=== PATIENT | female | born 1985 | race American Indian/Alaskan Native ===

== ENCOUNTER 2017-06-27 17:03 | Emergency (ER) | payer MEDICAID, OTHER ==
[2017-06-27 17:03] VITALS: BMI 36.0
[2017-06-27 17:14] VITALS: BP 135/90; PULSE 90; RESP 18; TEMP 98.1; O2SAT 100
--- NOTE | 2017-06-27 17:26 | C.PDOC ---
History Of Present Illness Patient is a 32yo female, presents to the ED for evaluation of an abscess/ infection present in her right axilla. Pt reports she has had several abscesses to the site which have all been drained in the past. Pt states she used Motrin and applied heat to the area with some relief; reports noticing yellow discharge spontaneously draining earlier with some blood. She denies any other medical complaints. PCP: None provided . Time Seen by Provider: 06/27/17 17:14 Chief Complaint (Nursing): Abnormal Skin Integrity History Per: Patient History/Exam Limitations: no limitations Onset/Duration Of Symptoms: Days (2) Current Symptoms Are (Timing): Still Present Quality Of Symptoms: Painful, Swollen, Draining Additional History Per: Patient Past Medical History Reviewed: Historical Data, Nursing Documentation, Vital Signs Vital Signs: Last Vital Signs Temp 98.1 F 06/27/17 17:08 Pulse 90 06/27/17 17:08 Resp 18 06/27/17 17:08 BP 135/90 06/27/17 17:08 Pulse Ox 100 06/27/17 17:48 - Medical History PMH: Anemia, Arthritis Other PMH: axilla abscess (recurrent) Surgical History: No Surg Hx - [facility] Procedures LOW CERVICAL (01/20/15) Family History: States: No Known Family Hx - Social History Hx Tobacco Use: No Hx Alcohol Use: No Hx Substance Use: No - Immunization History Hx Tetanus Toxoid Vaccination: No Hx Influenza Vaccination: No Hx Pneumococcal Vaccination: No Review Of Systems Except As Marked, All Systems Reviewed And Found Negative. Constitutional: Positive for: Fever (tactile) Skin: Positive for: Other (abscess to right axilla) Physical Exam - Physical Exam Appears: Well, Non-toxic Skin: Other (right axilla with 2 tender papular lesions with no active drainage. no fluctuance. skin very hardened with some mild warmth. ) Head: Atraumatic Eye(s): left: Normal Inspection, EOMI Ear(s): Bilateral: Normal Nose: Normal Lips: Normal Appearing Lymphatic: Deferred Cardiovascular: Rhythm Regular Respiratory: Normal Breath Sounds Extremity: Normal ROM Extremity: Bilateral: Atraumatic ED Course And Treatment O2 Sat by Pulse Oximetry: 100 (RA) Pulse Ox Interpretation: Normal Medical Decision Making Medical Decision Making: Time: 171 Impression: Hidradenitis Suppartiva Plan: -- Motrin 800 mg PO -- Pt to be discharged home with antibiotics Instructed to complete entire course and to return to ED if symptoms worsen or new symptoms arise. Disposition - Disposition Referrals: Agustina Joyce MD [Staff Provider] - [facility] [Outside] Disposition: HOME/ ROUTINE Disposition Time: 17:27 Condition: STABLE Additional Instructions: Ms. Johnson, thank you for letting us take care of you today. Return to the ER if your symptoms worsen, or if any problems. Take the medication listed below as prescribed. You are also being given patient [facility] Please follow these instructions. Follow up with Dr. Joyce (a general surgeon) for re-evaluation. If you have any problems making an appointment with the surgeon, call the [facility] service at the phone number below and they can help make you an appointment. Prescriptions: Cephalexin [Keflex] 1 tab PO BID #20 capsule Sulfamethoxazole/Trimethoprim [Bactrim DS 800 mg-160 mg] 2 tab PO BID #40 tab Instructions: Cellulitis (ED) Forms: [facility] (Montserratian), General Discharge Instructions Print Language: MALDIVIAN - POA Present On Arrival: None - Clinical Impression Clinical Impression: Hidradenitis suppurativa of right axilla, Cellulitis - Scribe Statement The provider has reviewed the documentation as recorded by the Wang Smalls Provider Attestation: All medical record entries made by the Wang were at my direction and personally dictated by me. I have reviewed the chart and agree that the record accurately reflects my personal performance of the history, physical exam, medical decision making, and the department course for this patient. I have also personally directed, reviewed, and agree with the discharge instructions and disposition.
== END 2017-06-27 17:43 | disposition home or self-care (01) ==
LOC: C.ER 17:03
DX: L73.2 Hidradenitis suppurativa (principal); L03.111 Cellulitis of right axilla

== ENCOUNTER 2018-09-08 12:04 | Emergency (ER) | payer MEDICAID ==
[2018-09-08 12:04] VITALS: BMI 36.0
[2018-09-08 12:19] VITALS: TEMP 98.6; O2SAT 100
--- NOTE | 2018-09-08 13:53 | CT ---
Date of service: 09/08/2018 PROCEDURE: CT HEAD WITHOUT CONTRAST. HISTORY: r/o ICH COMPARISON: Noncontrast head CT performed 01/29/15 TECHNIQUE: Axial computed tomography images were obtained through the head/brain without intravenous contrast. Radiation dose: Total exam DLP = 975.41 mGy-cm. This CT exam was performed using one or more of the following dose reduction techniques: Automated exposure control, adjustment of the mA and/or kV according to patient size, and/or use of iterative reconstruction technique. FINDINGS: HEMORRHAGE: No intracranial hemorrhage. BRAIN: No mass effect or edema. No atrophy or chronic microvascular ischemic changes. VENTRICLES: No hydrocephalus. CALVARIUM: Unremarkable. PARANASAL SINUSES: Unremarkable as visualized. No significant inflammatory changes. MASTOID AIR CELLS: Unremarkable as visualized. No inflammatory changes. OTHER FINDINGS: None. IMPRESSION: No acute intracranial pathology identified.
[2018-09-08 14:45] VITALS: BP 139/76; PULSE 85; RESP 18
--- NOTE | 2018-09-08 16:47 | C.PDOC ---
History Of Present Illness 33yo female, comes to ER reporting a headache and a mild headache x 3 days. Patient states her symptoms are increased with head movement. She denies any trauma, vision changes, fever, or neck stiffness. She has not taken any medications for the symptoms. Time Seen by Provider: 09/08/18 12:24 Chief Complaint (Nursing): Flu-like Symptoms History Per: Patient History/Exam Limitations: no limitations Onset/Duration Of Symptoms: Days, Persistent Current Symptoms Are (Timing): Still Present Past Medical History Reviewed: Historical Data, Nursing Documentation, Vital Signs Vital Signs: Last Vital Signs Temp 98.6 F 09/08/18 12:16 Pulse 85 09/08/18 14:44 Resp 18 09/08/18 14:44 BP 139/76 09/08/18 14:44 Pulse Ox 100 09/08/18 14:44 - Medical History PMH: Anemia, Arthritis Surgical History: No Surg Hx - [facility] Procedures LOW CERVICAL (01/20/15) Family History: States: Unknown Family Hx - Social History Hx Tobacco Use: No Hx Alcohol Use: No Hx Substance Use: No - Immunization History Hx Tetanus Toxoid Vaccination: No Hx Influenza Vaccination: No Hx Pneumococcal Vaccination: No Review Of Systems Except As Marked, All Systems Reviewed And Found Negative. Constitutional: Negative for: Fever, Chills Eyes: Negative for: Vision Change Musculoskeletal: Negative for: Neck Pain Neurological: Positive for: Headache, Dizziness. Negative for: Weakness, Numbness Physical Exam - Physical Exam Appears: Non-toxic, No Acute Distress Skin: Normal Color, Warm, Dry Head: Atraumatic, Normacephalic, No Tenderness Eye(s): bilateral: Normal Inspection, PERRL, EOMI Neck: Supple Chest: Symmetrical Cardiovascular: Rhythm Regular Respiratory: Normal Breath Sounds Extremity: Normal ROM Neurological/Psych: Oriented x3, Normal Speech, Normal Cognition, Normal Motor, Normal Sensation ED Course And Treatment O2 Sat by Pulse Oximetry: 100 (RA) Pulse Ox Interpretation: Normal Medical Decision Making Medical Decision Making: Impression: Headache Plan: -- CT HEad w/o contrast -- Motrin 600mg PO -- Antivert 25mg Po On reassessment, patient is resting comfortably, is tolerating PO, and pain has improved. Patient has no neurologic deficit, photophobia, rash, fever, or nuchal rigidity. Patient was instructed to follow up with physician/clinic in 1-2 days. Disposition - Disposition Referrals: [facility] [Outside] [facility] [Outside] Disposition: HOME/ ROUTINE Disposition Time: 14:00 Condition: GOOD Additional Instructions: KATHRYN HUGGINS, thank you for letting us take care of you today. The emergency medical care you received today was directed at your acute symptoms. If you were prescribed any medication, please fill it and take as directed. It may take several days for your symptoms to resolve. Return to the Emergency Department if your symptoms worsen, do not improve, or if you have any other problems. Please contact your doctor or call one of the physicians/clinics you have been referred to that are listed on the Patient Visit Information form that is included in your discharge packet. Bring any paperwork you were given at discharge with you along with any medications you are taking to your follow up visit. Our treatment cannot replace ongoing medical care by a primary care provider outside of the emergency department. Thank you for allowing the [facility] team to be part of your care today. Follow up with your primary care doctor or our clinic this week for re- evaluation and further management. Prescriptions: Ibuprofen [Motrin] 600 mg PO Q6 PRN #20 tab PRN Reason: Pain, Moderate (4-7) Meclizine [Meclizine*] 25 mg PO Q6 PRN #20 tab PRN Reason: Dizziness Instructions: Headache, Adult Forms: [facility] (Arabic) - Clinical Impression Clinical Impression: Headache - Scribe Statement The provider has reviewed the documentation as recorded by the Wang Smalls Provider Attestation: All medical record entries made by the Wang were at my direction and personally dictated by me. I have reviewed the chart and agree that the record accurately reflects my personal performance of the history, physical exam, medical decision making, and the department course for this patient. I have also personally directed, reviewed, and agree with the discharge instructions and disposition.
== END 2018-09-08 14:45 | disposition home or self-care (01) ==
LOC: C.ER 12:04
DX: R51 Headache (principal)